=== PATIENT | female | born 1950 | race Hispanic/Latino ===

== ENCOUNTER → 2017-06-22 | Outpatient (CLI) | payer OTHER | END | disposition home or self-care (01) | LOC: RAH 12:29 | PROVIDERS: ATTEND Family Medicine | DX: N63.20 Unspecified lump in the left breast, unspecified quadrant (principal); R92.8 Other abnormal and inconclusive findings on diagnostic imaging of breast | CPT/HCPCS: 76641 ==

== ENCOUNTER → 2017-08-04 | Outpatient (CLI) | payer OTHER | END | disposition home or self-care (01) | LOC: RAH 13:05 | PROVIDERS: ATTEND Otolaryngology Plastic Surgery within the Head & Neck | DX: E04.2 Nontoxic multinodular goiter (principal) | CPT/HCPCS: 76536 ==

== ENCOUNTER → 2017-12-16 | Outpatient (CLI) | payer OTHER | END | disposition home or self-care (01) | LOC: OIH 15:18 | PROVIDERS: ATTEND Family Medicine | DX: M17.0 Bilateral primary osteoarthritis of knee (principal) | CPT/HCPCS: 73560 ==

== ENCOUNTER → 2017-12-29 | Outpatient (CLI) | payer OTHER | END | disposition home or self-care (01) | LOC: RAH 12:58 | PROVIDERS: ATTEND Family Medicine | DX: N63.24 Unspecified lump in the left breast, lower inner quadrant (principal) | CPT/HCPCS: 76641; 77066 ==

== ENCOUNTER → 2018-07-05 | Outpatient (CLI) | payer OTHER | END | disposition home or self-care (01) | LOC: RAH 12:39 | PROVIDERS: ATTEND Family Medicine | DX: D24.2 Benign neoplasm of left breast (principal); E04.1 Nontoxic single thyroid nodule | CPT/HCPCS: 76536; 76641 ==

== ENCOUNTER → 2018-11-08 | Outpatient (CLI) | payer OTHER | END | disposition home or self-care (01) | LOC: OIH 14:03 | PROVIDERS: ATTEND Family Medicine | DX: M17.12 Unilateral primary osteoarthritis, left knee (principal); M79.89 Other specified soft tissue disorders | CPT/HCPCS: 73562 ==

== ENCOUNTER → 2018-12-30 | Outpatient (CLI) | payer OTHER | END | disposition home or self-care (01) | LOC: RAH 12:30 | PROVIDERS: ATTEND Family Medicine | DX: N63.10 Unspecified lump in the right breast, unspecified quadrant (principal); N63.20 Unspecified lump in the left breast, unspecified quadrant | CPT/HCPCS: 76641; 77066 ==

== ENCOUNTER 2019-02-04 11:00 | Observation (INO) | payer OTHER ==
[~2019-02-04] VITALS: Ht 157.5 cm; Wt 76.1 kg
[2019-02-08 12:25] LABS: APPEARANCE,URINE Clear (CLEAR); BILIRUBIN,URINE Negative (NEGATIVE); COLOR,URINE Yellow (YELLOW); GLUCOSE, URINE (UA) >=1000 mg/dL (NEGATIVE); KETONES,URINE Negative (NEGATIVE); LEUKOCYTE ESTERASE ,URINE Negative (NEGATIVE); NITRATE,URINE Negative (NEGATIVE); OCCULT BLOOD,URINE Negative (NEGATIVE); PROTEIN,URINE Negative (NEGATIVE); UROBILINOGEN,URINE 0.2 mg/dL (0.2-1.0)
[2019-02-08 12:33] LABS: BACTERIA,URINE Many /HPF (None Seen); FINE GRANULAR CASTS,URINE 0-2 /LPF (None Seen); RBC,URINE 0-1 /HPF (0-1); SQUAMOUS EPITHELIAL CELL,UR 0-2 /HPF (0-2)
[2019-02-08 12:34] LABS: WBC,URINE 0-1 /HPF (0-1)
[2019-02-08 12:36] VITALS: BP 132/72
[2019-02-08 12:44] LABS: CREATININE 1.9 mg/dL (0.5-1.5); POTASSIUM 4.8 mmol/L (3.5-5.1)
[2019-02-08 12:45] LABS: INR 0.94 (0.85-1.15); PROTHROMBIN TIME 9.9 SEC (9.6-11.6)
[2019-02-08] MEDS ORDERED: CANA300T PO (13:23)
[2019-02-08] MEDS ORDERED: ATOR20TA65 PO (13:23)
[2019-02-08] MEDS ORDERED: METF-445 PO (13:23)
[2019-02-08] MEDS ORDERED: LEVO50TA11 PO (13:23)
[2019-02-08] MEDS ORDERED: FOLI0.4T2 PO (13:23)
[2019-02-08] MEDS ORDERED: ENAL10TA PO (13:23)
--- NOTE | 2019-02-08 16:48 | NUR ---
LABS INFORMED DR. VILLAGRAN OF ABNORMAL UA. NO ORDERS RECEIVED. PROCEED WITH PLANNED PROCEDURE.
[2019-02-09] VITALS (17 sets, daily range): BP systolic 99–122; BP diastolic 54–68
--- NOTE | 2019-02-09 07:49 | NUR ---
POTENTIAL FOR INFECTION: SHAVED LEFT KNEE / LEFT LEG PER LUZMARIA THOMAS, FOLLOWED BY WIPING WITH DESTINY: 2% CHLORHEXIDINE GLUCONATE CLOTH PATIENTS PRE-OP SKIN PREP.
[2019-02-09] MEDS: CEFAZOLIN SODIUM 1 GM VIAL IVP SCH ×3 (08:00→21:39)
[2019-02-09] MEDS ORDERED: SODIUM CHLORIDE 0.9% 1000ML 1,000 ML IV ONE (08:05)
[2019-02-09] MEDS ORDERED: METOCLOPRAMIDE 10 MG/2 ML VIAL ONE (08:40)
[2019-02-09] MEDS ORDERED: ACETAMINOPHEN EXTRA STRENGTH 500 MG TABLET ONE (08:41)
[2019-02-09] MEDS ORDERED: CEFAZOLIN SODIUM 1 GM VIAL ONE ×2 (09:01→12:56)
[2019-02-09] MEDS ORDERED: TRANEXAMIC ACID 1000MG/10ML IV ONE (09:15)
[2019-02-09] MEDS ORDERED: ROPIVACAINE 0.5% 5MG/ML 30ML IJ ONE (10:12)
[2019-02-09] MEDS ORDERED: ONDANSETRON HCL 4 MG/2 ML VIAL ONE (10:13)
[2019-02-09] MEDS ORDERED: LIDOCAINE PF 2% 5ML ABBOJECT ONE (10:13)
[2019-02-09] MEDS ORDERED: PROPOFOL 10 MG/ML 20ML VIAL IV ONE (10:14)
[2019-02-09] MEDS ORDERED: ROCURONIUM 10MG/1ML SYR 10 MG/ML ML ONE (10:14)
[2019-02-09] MEDS ORDERED: MIDAZOLAM HCL 1 MG/ML 2ML VIAL ONE (10:14)
[2019-02-09] MEDS ORDERED: FENTANYL CITRATE PF 50 MCG/1 ML 2ML VIAL ONE (11:55)
[2019-02-09] MEDS ORDERED: GLYCOPYRROLATE 1 MG/5 ML SYRINGE ONE (12:07)
[2019-02-09] MEDS ORDERED: PHENYLEPHRINE HCL 10 MG/ML 1ML VIAL IV ONE (12:14)
[2019-02-09] MEDS ORDERED: CEFAZOLIN SODIUM 1 GM VIAL IRRIG ONE (12:15)
[2019-02-09] MEDS ORDERED: NEOSTIGMINE 5MG/5ML SYR IV ONE (13:25)
[2019-02-09] MEDS ORDERED: DiphenhydrAMINE HCL 50 MG/ML VIAL IVP PRN (13:30)
[2019-02-09] MEDS ORDERED: POTASSIUM CHLORIDE 10% ELIXIR 20 MEQ/15 ML UDCUP PO PRN (13:30)
[2019-02-09] MEDS ORDERED: ONDANSETRON HCL 4 MG/2 ML VIAL IVP PRN (13:30)
[2019-02-09] MEDS ORDERED: FERROUS FUMARATE 324 MG TABLET PO PRN (13:30)
[2019-02-09] MEDS: ACETAMINOPHEN EXTRA STRENGTH 500 MG TABLET PO SCH ×2 (13:30→21:34)
[2019-02-09] MEDS ORDERED: POTASSIUM CHLORIDE 20MEQ/100ML 100 ML IV PRN (13:30)
[2019-02-09] MEDS ORDERED: TEMAZEPAM 15 MG CAPSULE PO PRN (13:30)
[2019-02-09] MEDS ORDERED: TRAMADOL HCL 50 MG TABLET PO PRN (13:30)
[2019-02-09] MEDS ORDERED: POTASSIUM CHLORIDE 20 MEQ ERTAB PO PRN (13:30)
[2019-02-09] MEDS ORDERED: LIDOCAINE HCL-MPF 1% 2ML VIAL IV PRN (13:30)
[2019-02-09] MEDS ORDERED: MEPERIDINE-PF 25 MG/ML SYG ONE ×3 (13:42→14:27)
[2019-02-09] MEDS ORDERED: TRANEXAMIC ACID 1000MG/10ML ONE (14:04)
[2019-02-09] MEDS: SODIUM CHLORIDE 0.9% 1000ML 1,000 ML IV SCH ×2 (15:29→23:39)
[2019-02-09] MEDS: OXYCODONE HCL 5 MG TAB PO PRN ×2 (15:40→23:38)
[2019-02-09] MEDS: INSULIN HUMULIN R 100 UNIT/ML 3ML SQ SCH ×2 (16:30→21:00)
[2019-02-09] MEDS ORDERED: CEFAZOLIN SODIUM 1 GM VIAL IVP SCH (18:30)
--- NOTE | 2019-02-09 20:00 | NUR ---
ASSESSMENT NOTE PATIENT AWAKE ALERT, OX3, ABDOMINAL INCISION OPEN TO AIR WITH 26 MAGUE INTACT, NO REDNESS OR SWELLING NOTED, GOOD PROXIMATION, NO DRAINAGE NOTED, ENCOURAGE DEEP BREATHING EXERCISES AND REINFORCE IS PREVIOUSLY DONE WITH MAXIMUM VOLUME INSPIRATION OF 1500, TOLERATED WELL,TEACH PATIENT PLAN OF CARE AND EXPECTED OUTCOME Addendum: 02/09/19 at 0694 by JAYE HALL RN RN WRONG PATIENT
[2019-02-09] MEDS: ENALAPRIL MALEATE 10 MG TABLET PO SCH (21:33)
[2019-02-09] MEDS: METFORMIN HCL 850 MG TABLET PO SCH (21:33)
[2019-02-09] MEDS: PREGABALIN 25 MG CAP PO SCH (21:33)
[2019-02-09] MEDS: ASPIRIN 81MG TAB.CHEW PO SCH (21:34)
[2019-02-09] MEDS: ATORVASTATIN CALCIUM 20 MG TABLET PO SCH (21:34)
[2019-02-10] VITALS (7 sets, daily range): BP systolic 92–131; BP diastolic 51–61
[2019-02-10] MEDS: OXYCODONE HCL 5 MG TAB PO PRN ×5 (01:01→22:25)
[2019-02-10] MEDS: CEFAZOLIN SODIUM 1 GM VIAL IVP SCH (03:59)
[2019-02-10 05:13] LABS: HEMATOCRIT 33.9 % (36-48); MEAN CORPUSCULAR HEMOGLOBIN 32.7 pg (27.0-33.0); MEAN CORPUSCULAR HGB CONC 33.9 g/dL (32.0-36.0); MEAN CORPUSCULAR VOLUME 96.5 fL (79-99); PLATELET COUNT (AUTO) 193 K/uL (130-400); RED BLOOD CELL COUNT(AUTO) 3.51 MIL/uL (4.00-5.50); RED CELL DISTRIBUTION WIDTH 12.8 % (11.0-15.5); WHITE BLOOD COUNT (AUTO) 4.8 K/uL (4.8-10.8)
[2019-02-10] MEDS: ACETAMINOPHEN EXTRA STRENGTH 500 MG TABLET PO SCH ×3 (05:19→19:31)
[2019-02-10 05:42] LABS: CREATININE 1.8 mg/dL (0.5-1.5); POTASSIUM 4.5 mmol/L (3.5-5.1)
[2019-02-10] MEDS: LEVOTHYROXINE 50 MCG TABLET PO SCH (06:08)
[2019-02-10] MEDS: INSULIN HUMULIN R 100 UNIT/ML 3ML SQ SCH ×4 (06:15→20:43)
[2019-02-10] MEDS: POLYETHYLENE GLYCOL 3350 17 GM POWD.PACK PO SCH (09:00)
[2019-02-10] MEDS: CANAGLIFLOZIN 300 MG PO SCH (09:00)
[2019-02-10] MEDS: FAMOTIDINE 20MG TAB 20 MG TAB PO SCH (09:01)
[2019-02-10] MEDS: CALCIUM CARBONATE 500 MG TABLET PO PRN ×2 (09:01→19:31)
[2019-02-10] MEDS: ENALAPRIL MALEATE 10 MG TABLET PO SCH ×2 (09:01→19:33)
[2019-02-10] MEDS: PREGABALIN 25 MG CAP PO SCH ×2 (09:02→19:30)
[2019-02-10] MEDS: FOLIC ACID 1 MG TABLET PO SCH (09:02)
[2019-02-10] MEDS: ASPIRIN 81MG TAB.CHEW PO SCH ×2 (09:02→19:31)
[2019-02-10] MEDS: SODIUM CHLORIDE 0.9% 1000ML 1,000 ML IV SCH (09:07)
--- NOTE | 2019-02-10 11:38 | NUR ---
CM Note: [facility] pending ins auth CM faxed order, clinicals, PT, and PASRR to [facility], confirmation received. Spoke to Leena will come eval pt and send for auth to insurance today, aware dcp for today. Pt pending ins auth and acceptance. Primary nurse aware. CM to cont to follow up.
--- NOTE | 2019-02-10 11:56 | NUR ---
1131 Had pt sign [facility] Letter.Faxed to [phone] and placed in chart under consent tab
--- NOTE | 2019-02-10 14:24 | NUR ---
DC PLAN PER PATIENT, STATES SHE IS INDEPENDENT PRIOR TO HOSPITALIZATION, LIVES WITH SPOUSE, NO PROVIDER SERVICES NOR MEDICAL EQUIPMENT. ANJANA SIGNED FOR PENDING SNF ORDER PER MD. CLINICALS FAXED AND RECEIVED AT [facility], PENDING WELDING MACHINE OPERATOR SUBMERGED ARC VISIT. Addendum: 02/10/19 at 1425 by OMAR GRESHAM RN Amended: Links added.
--- NOTE | 2019-02-10 15:07 | NUR ---
CLARA Note: [facility] pending ins auth CM spoke to Janee rodney/[employer]. Currently on her way to assess pt. Pt pending ins auth. Primary nurse aware. CM to cont to follow up.
[2019-02-10] MEDS: ATORVASTATIN CALCIUM 20 MG TABLET PO SCH (19:31)
[2019-02-10] MEDS: METFORMIN HCL 850 MG TABLET PO SCH (19:31)
[2019-02-11] MEDS: ACETAMINOPHEN EXTRA STRENGTH 500 MG TABLET PO SCH ×2 (02:55→11:55)
[2019-02-11] MEDS: OXYCODONE HCL 5 MG TAB PO PRN ×2 (02:55→08:25)
[2019-02-11 04:00] VITALS: BP 104/55
[2019-02-11] MEDS: INSULIN HUMULIN R 100 UNIT/ML 3ML SQ SCH ×3 (06:16→16:30)
[2019-02-11] MEDS: LEVOTHYROXINE 50 MCG TABLET PO SCH (06:16)
[2019-02-11 07:27] VITALS: BP 110/62
[2019-02-11] MEDS: POLYETHYLENE GLYCOL 3350 17 GM POWD.PACK PO SCH (08:23)
[2019-02-11] MEDS: ASPIRIN 81MG TAB.CHEW PO SCH ×2 (08:25→20:36)
[2019-02-11] MEDS: ENALAPRIL MALEATE 10 MG TABLET PO SCH ×2 (08:26→20:37)
[2019-02-11] MEDS: FOLIC ACID 1 MG TABLET PO SCH (08:26)
[2019-02-11] MEDS: PREGABALIN 25 MG CAP PO SCH ×2 (08:26→20:36)
[2019-02-11] MEDS: FAMOTIDINE 20MG TAB 20 MG TAB PO SCH (08:27)
[2019-02-11] MEDS: CANAGLIFLOZIN 300 MG PO SCH (08:31)
[2019-02-11 10:47] VITALS: BP 107/56
--- NOTE | 2019-02-11 12:10 | NUR ---
CLARA Note: [facility] pending ins auth CM spoke to Janee rodney/[employer]. Pt still pending ins auth at this time. Primary nurse aware. CM to cont to follow up.
[2019-02-11] MEDS ORDERED: BISACODYL 10 MG SUPP.RECT RC ONE (14:06)
--- NOTE | 2019-02-11 16:00 | NUR ---
CM Note: [facility] ins auth CM spoke to Janee rodney/[employer]. Pt has ins auth. Pt safe to dc via [employer] transport van. Primary nurse aware. CM to cont to follow up.
[2019-02-11 16:31] VITALS: BP 11/64
[2019-02-11] MEDS ORDERED: HYDR-4457 PO (19:07)
[2019-02-11] MEDS ORDERED: ASPI-1005 PO (19:07)
--- NOTE | 2019-02-11 19:35 | NUR ---
dressing changed dressing left knee , incision with no redness or drainage, cleansed with betadine, dab dry apply sara dressing labeled to remove 02/16/19, tolerated well
--- NOTE | 2019-02-11 19:52 | NUR ---
d/c report called and faxed to steven at [facility];
[2019-02-11 20:04] VITALS: BP 99/64
[2019-02-11] MEDS: METFORMIN HCL 850 MG TABLET PO SCH (20:35)
[2019-02-11] MEDS: ATORVASTATIN CALCIUM 20 MG TABLET PO SCH (20:35)
--- NOTE | 2019-02-11 21:05 | NUR ---
DISCHARGE DISCHARGE TO [facility] VIA WHEELCHAIR PER DINKEY ENGINE FIRER/FIREMAN, PATIENTS AT BEDSIDE
[2019-02-12] MEDS ORDERED: BISACODYL 10 MG SUPP.RECT RC PRN (13:30)
== END 2019-02-11 21:05 ==
LOC: EDSTATUS 02-08 11:00 → DAHIP 02-09 06:05 → 4AH 02-09 14:47
PROVIDERS: ADMIT Orthopaedic Surgery; ATTEND Orthopaedic Surgery
DX: M17.12 Unilateral primary osteoarthritis, left knee (principal); I10 Essential (primary) hypertension; E11.9 Type 2 diabetes mellitus without complications; E78.00 Pure hypercholesterolemia, unspecified; Z90.5 Acquired absence of kidney; Z79.899 Other long term (current) drug therapy
CPT/HCPCS: 27447; 36415 ×2; 80048 ×2; 81001; 82948 ×11; 85027; 85610; 87070; 87076; 87205; 87641; 88304; 88311; 96372 ×2; 96374; 96376; 97039; 97116 ×4; 97161; 97530 ×4; A4215; A4221; A4222; A4223; A4649 ×4; A4663; A4930 ×3; A5120; C1763; C1776; G0168; G0378 ×58; G8978; G8979; G8980; G8981; G8982; G8983; J0690 ×6; J1815 ×2; J2001; J2175 ×3; J2250; J2370; J2405; J2704; J2710; J2765; J2795; J3010; J3490 ×3; J7030 ×3

== ENCOUNTER → 2020-01-03 | Outpatient (CLI) | payer OTHER ==
[~2020-01-03] MED LIST: ASPI-1005 PO; ATOR20TA65 PO; CANA300T PO; ENAL10TA18 PO; FOLI0.4T2 PO; HYDR-4457 PO; LEVO50TA11 PO; METF-445 PO
== END | disposition home or self-care (01) ==
LOC: RAH 10:28
PROVIDERS: ATTEND Family Medicine
DX: D24.1 Benign neoplasm of right breast (principal); D24.2 Benign neoplasm of left breast; R92.8 Other abnormal and inconclusive findings on diagnostic imaging of breast
CPT/HCPCS: 76641; 77066

== ENCOUNTER → 2021-03-21 | Outpatient (CLI) | payer OTHER ==
[~2021-03-21] MED LIST changes: -FOLI0.4T2 PO; +FOLI0.4T6 PO
== END | disposition home or self-care (01) ==
LOC: RAH 07:37
PROVIDERS: ATTEND Family Medicine
DX: N60.01 Solitary cyst of right breast (principal); N63.24 Unspecified lump in the left breast, lower inner quadrant; R92.1 Mammographic calcification found on diagnostic imaging of breast
CPT/HCPCS: 77066

== ENCOUNTER 2021-04-28 08:12 | Emergency (ER) | payer OTHER ==
[~2021-04-28] VITALS: Ht 157.5 cm; Wt 84.4 kg
[2021-04-28] MEDS ORDERED: MORPHINE 4 MG SYG IV SCH (09:30)
[2021-04-28 10:06] LABS: BILIRUBIN,URINE Negative (NEGATIVE); COLOR,URINE Yellow (YELLOW); GLUCOSE, URINE (UA) >=1000 mg/dL (NEGATIVE); KETONES,URINE Negative (NEGATIVE); LEUKOCYTE ESTERASE ,URINE Negative (NEGATIVE); NITRATE,URINE Negative (NEGATIVE); OCCULT BLOOD,URINE Negative (NEGATIVE); PH,URINE 5.5 (5.0-8.0); PROTEIN,URINE Negative (NEGATIVE); UROBILINOGEN,URINE 0.2 mg/dL (0.2-1.0)
[2021-04-28 10:11] LABS: APPEARANCE,URINE CLEAR (CLEAR)
[2021-04-28 10:15] LABS: BACTERIA,URINE Rare /HPF (None Seen); RBC,URINE 0-1 /HPF (0-1); SQUAMOUS EPITHELIAL CELL,UR Rare /HPF (0-2)
[2021-04-28 10:19] LABS: BASOPHILS % (AUTO) 0.2 % (0.0-5.0); HEMATOCRIT 42.4 % (36-48); MEAN CORPUSCULAR HGB CONC 32.3 g/dL (32.0-36.0); MEAN CORPUSCULAR VOLUME 95.9 fL (79-99); MONOCYTES % (AUTO) 7.8 % (3.0-13.0); NEUTROPHILS % (AUTO) 74.8 % (40.0-77.0); PLATELET COUNT (AUTO) 194 K/uL (130-400); RED BLOOD CELL COUNT(AUTO) 4.42 MIL/uL (4.00-5.50); RED CELL DISTRIBUTION WIDTH 12.2 % (11.0-15.5); WHITE BLOOD COUNT (AUTO) 4.2 K/uL (4.8-10.8)
[2021-04-28 10:40] LABS: ALBUMIN 3.8 g/dL (3.5-5.0); BILIRUBIN,TOTAL 0.3 mg/dL (0.2-1.0); CREATININE 2.5 mg/dL (0.5-1.5); POTASSIUM 4.7 mmol/L (3.5-5.1); TOTAL PROTEIN, SERUM 7.6 g/dL (6.0-8.3)
[2021-04-28 11:30] VITALS: BP 128/65
[2021-04-28] MEDS ORDERED: ACET1TAB25 PO (11:46)
== END 2021-04-28 12:14 | disposition home or self-care (01) ==
LOC: EDH 08:12
DX: R10.12 Left upper quadrant pain (principal); E11.9 Type 2 diabetes mellitus without complications; E78.00 Pure hypercholesterolemia, unspecified; I10 Essential (primary) hypertension; M19.90 Unspecified osteoarthritis, unspecified site; Z79.82 Long term (current) use of aspirin; Z79.84 Long term (current) use of oral hypoglycemic drugs; Z90.5 Acquired absence of kidney
CPT/HCPCS: 36415; 74176; 80053; 81001; 83690; 85025; 96374; 99284; J2270

== ENCOUNTER 2021-05-01 08:51 | Emergency (ER) | payer OTHER ==
[~2021-05-01] VITALS: Ht 160 cm; Wt 83.5 kg
[~2021-05-01 08:51] MED LIST changes: +ACET1TAB25 PO
[2021-05-01 10:04] LABS: BASOPHILS % (AUTO) 0.3 % (0.0-5.0); EOSINOPHILS % (AUTO) 2.4 % (0.0-8.0); HEMATOCRIT 42.5 % (36-48); LYMPHOCYTES % (AUTO) 17.2 % (21.0-51.0); MEAN CORPUSCULAR HEMOGLOBIN 31.5 pg (27.0-33.0); MEAN CORPUSCULAR HGB CONC 32.5 g/dL (32.0-36.0); MONOCYTES % (AUTO) 5.2 % (3.0-13.0); NEUTROPHILS % (AUTO) 74.3 % (40.0-77.0); PLATELET COUNT (AUTO) 205 K/uL (130-400); RED BLOOD CELL COUNT(AUTO) 4.38 MIL/uL (4.00-5.50); RED CELL DISTRIBUTION WIDTH 12.3 % (11.0-15.5); WHITE BLOOD COUNT (AUTO) 6.8 K/uL (4.8-10.8)
[2021-05-01 10:07] LABS: POTASSIUM 4.9 mmol/L (3.5-5.1)
[2021-05-01 10:12] LABS: BILIRUBIN,TOTAL 0.5 mg/dL (0.2-1.0); TOTAL PROTEIN, SERUM 7.7 g/dL (6.0-8.3)
[2021-05-01 10:47] LABS: APPEARANCE,URINE Clear (CLEAR); BILIRUBIN,URINE Negative (NEGATIVE); COLOR,URINE Yellow (YELLOW); GLUCOSE, URINE (UA) 500 mg/dL (NEGATIVE); KETONES,URINE Negative (NEGATIVE); LEUKOCYTE ESTERASE ,URINE Trace (NEGATIVE); NITRATE,URINE Negative (NEGATIVE); OCCULT BLOOD,URINE Negative (NEGATIVE); PH,URINE 5.5 (5.0-8.0); PROTEIN,URINE Negative (NEGATIVE); UROBILINOGEN,URINE 0.2 mg/dL (0.2-1.0)
[2021-05-01 10:58] LABS: BACTERIA,URINE Rare /HPF (None Seen); RBC,URINE 0-1 /HPF (0-1); SQUAMOUS EPITHELIAL CELL,UR Rare /HPF (0-2); WBC,URINE 0-1 /HPF (0-1)
[2021-05-01] MEDS ORDERED: ONDANSETRON ODT 4MG TAB ONE (13:34)
[2021-05-01] MEDS ORDERED: ONDA-104 PO (13:36)
[2021-05-01 13:43] VITALS: BP 138/64
[2021-05-01] MEDS ORDERED: ONDANSETRON ODT 4MG TAB SL ONE (14:00)
== END 2021-05-01 14:05 | disposition home or self-care (01) ==
LOC: EDH 08:51
DX: K59.00 Constipation, unspecified (principal); R14.0 Abdominal distension (gaseous); I10 Essential (primary) hypertension; E11.9 Type 2 diabetes mellitus without complications; Z20.822 Contact with and (suspected) exposure to COVID-19; Z90.5 Acquired absence of kidney; Z87.442 Personal history of urinary calculi; Z79.899 Other long term (current) drug therapy; Z79.82 Long term (current) use of aspirin; Z79.84 Long term (current) use of oral hypoglycemic drugs
CPT/HCPCS: 36415; 71045; 74018; 80053; 81001; 83690; 85025; 87635; 99284; C9803

== ENCOUNTER → 2022-04-14 | Outpatient (CLI) | payer OTHER ==
[~2022-04-14] MED LIST changes: +ACET-2079 PO; -ACET1TAB25 PO; +ONDA-104 PO
== END | disposition home or self-care (01) ==
LOC: RAH 14:30
PROVIDERS: ATTEND Family Medicine
DX: Z12.31 Encounter for screening mammogram for malignant neoplasm of breast (principal)
CPT/HCPCS: 77067

== ENCOUNTER → 2023-04-24 | Outpatient (CLI) | payer OTHER ==
[~2023-04-24] MED LIST changes: +ENAL-89 PO; -ENAL10TA18 PO
== END | disposition home or self-care (01) ==
LOC: RAH 12:26
PROVIDERS: ATTEND Family Medicine
DX: Z12.31 Encounter for screening mammogram for malignant neoplasm of breast (principal)
CPT/HCPCS: 77067

== ENCOUNTER → 2023-09-25 | Outpatient (CLI) | payer OTHER, MEDICARE | END | disposition home or self-care (01) | LOC: RAH 10:00 | PROVIDERS: ATTEND Family Medicine | DX: M43.17 Spondylolisthesis, lumbosacral region (principal); M47.812 Spondylosis without myelopathy or radiculopathy, cervical region; M21.851 Other specified acquired deformities of right thigh; M25.761 Osteophyte, right knee; M17.11 Unilateral primary osteoarthritis, right knee; J44.9 Chronic obstructive pulmonary disease, unspecified | CPT/HCPCS: 71046; 72040; 72070; 72100; 73560 ==

== ENCOUNTER → 2023-09-28 | Outpatient (CLI) | payer OTHER, MEDICARE | END | disposition home or self-care (01) | LOC: RAH 10:00 | PROVIDERS: ATTEND Family Medicine | DX: M17.11 Unilateral primary osteoarthritis, right knee (principal); M21.851 Other specified acquired deformities of right thigh; M25.561 Pain in right knee | CPT/HCPCS: 73560 ==

== ENCOUNTER → 2024-07-14 | Outpatient (CLI) | payer OTHER | END | disposition home or self-care (01) | LOC: RAH 13:56 | PROVIDERS: ATTEND Family Medicine | DX: Z12.31 Encounter for screening mammogram for malignant neoplasm of breast (principal) | CPT/HCPCS: 77067 ==